=== PATIENT | female | born 1970 | race Caucasian/White ===

== ENCOUNTER 2019-08-28 14:34 | Emergency (ER) | payer MEDICAID ==
[~2019-08-28] VITALS: Ht 162.6 cm; Wt 80.3 kg
[~2019-08-28 14:34] MED LIST: ADV25050; ALBU17AE25; CEPH-443 PO; GLIM4TAB55; KETO120S3 TOP; METF-849; MUPI22OI2 TOP; NPH,100V
[2019-08-28 14:40] VITALS: BP 159/70; PULSE 96; RESP 16; Ht 162.6 cm; Wt 80.3 kg
== END 2019-08-28 16:00 | disposition home or self-care (01) ==
LOC: FTE 14:34
DX: L03.032 Cellulitis of left toe (principal); B35.1 Tinea unguium; E11.9 Type 2 diabetes mellitus without complications; J45.909 Unspecified asthma, uncomplicated; Z79.4 Long term (current) use of insulin
CPT/HCPCS: 99283